=== PATIENT | male | born 1940 | race Caucasian/White ===

== ENCOUNTER 2016-11-20 12:29 | Emergency (ER) | payer MEDICARE ==
--- NOTE | 2016-11-27 21:25 | ER ---
ADMIT: 11/20/2016 RM/LOC: ER [facility] MR#: [id number] [facility] [address], [place] [id number] CHRIS ENCINAS [address] [place] [address] Emergency Room Report SEX: M AGE: 76 : 1940 DATE: 11/20/2016 ADDENDUM: See T-sheet for complete H and P A 76-year-old male, Parkinson's and some dementia, is brought in by ambulance from the [place] for concern of possible stroke. Apparently, he was less interactive and they called EMS. When EMS arrived, they checked the blood sugar and it was low at 63, they gave an amp of D50 IV and they states that shortly after he began acting more appropriately. They did transfer him for evaluation. His blood sugar here was 203 on arrival, and after talking to family, he was essentially mentating at his baseline. He was here for approximately an hour and a half. We rechecked another blood sugar and it was 163 and still mentating fine. His vital signs were unremarkable. I do not see any focal findings of any stroke symptoms, and his CT head was negative. He is discharged home with a diagnosis of hypoglycemia. Continue his current medications and check his blood sugar regularly. Rodriguez Covarrubias MD/ kurt JOB #: [id number] CC: Rodriguez Covarrubias MD, Attending Physician [facility] Physician, Family Physician
== END 2016-11-20 15:10 | disposition home or self-care (01) ==
LOC: ER 12:29
DX: E11.649 Type 2 diabetes mellitus with hypoglycemia without coma (principal); I10 Essential (primary) hypertension; E78.5 Hyperlipidemia, unspecified; Z79.899 Other long term (current) drug therapy